=== PATIENT | female | born 1950 | race Caucasian/White ===

== ENCOUNTER 2017-03-02 14:47 | Inpatient (IN) | payer MEDICARE ==
[2017-03-02 15:59] VITALS: BP 139/52
[2017-03-02] MEDS ORDERED: AMANTADINE100 M1 PO (16:05)
[2017-03-02] MEDS ORDERED: NORVASC10 MG PO (16:06)
[2017-03-02] MEDS ORDERED: COLACE100 MG PO (16:06)
[2017-03-02] MEDS ORDERED: BAYER CHEWABLE81 MG PO (16:06)
[2017-03-02] MEDS ORDERED: FERROUS SULFAT325 MG PO (16:07)
[2017-03-02] MEDS ORDERED: LIPITOR20 MG PO (16:07)
[2017-03-02] MEDS ORDERED: MELATONIN 3 MG1 TAB PO (16:08)
[2017-03-02] MEDS ORDERED: GLUCOPHAGE500 MG PO (16:08)
[2017-03-02] MEDS ORDERED: SINGULAIR10 MG PO (16:09)
[2017-03-02] MEDS ORDERED: MILK OF MAGNESI30 ML PO (16:09)
[2017-03-02] MEDS ORDERED: DIOVAN160 MG PO (16:10)
[2017-03-02] MEDS ORDERED: VITAMIN D5000 UNIT PO (16:10)
[2017-03-02] MEDS ORDERED: NOVOLOG100 U/M1 SC (16:11)
[2017-03-02] MEDS ORDERED: RISPERDAL2 MG PO (16:12)
[2017-03-02] MEDS ORDERED: LANTUS INSULIN10 ML SC (16:14)
--- NOTE | 2017-03-02 16:34 | NUR ---
SPOKE WITH PT'S SISTER AND GOT VERBAL CONSENT FOR ADMIT. PT IS ALSO IN AGREEMENT FOR ADMISSION. CODE STATUS ADDRESSED AND PT IS A DNR.
--- NOTE | 2017-03-02 17:12 | NUR ---
Patient came from [facility] via carrier by wheel chair. She has a history of Schizophrenia. Patient is oriented to self only, but realizes she is in a hospital. She was admitted to Dr. Cárdenas because she has been aggressive and resistant with staff. She can follow commands. Patient has a flat affect. Patient is a DNR. Her sister, Chloe Mccain is her POA, who has given verbal consent for treatment. Patient has been oriented to her room, and unit. Patient has been calm and cooperative.
[2017-03-02 17:36] LABS: BASOPHILS 0.4 % (0-2); EOSINOPHILS 0.9 % (0-7); HEMATOCRIT 33.2 % (36.0-48.0); IMMATURE GRANULOCYTES 0.1 % (0-5); LYMPHOCYTES 23.6 % (15-50); MCH 22.5 pg (26.0-34.0); MCHC 30.1 g/dL (31.0-37.0); MCV 74.8 fL (80.0-100.0); MEAN PLATELET VOLUME 9.6 fL (7.4-10.4); MONOCYTES 6.8 % (2-11); NEUTROPHILS 68.2 % (40-80); PLATELET COUNT 265 10x3/uL (130-400); RBC 4.44 10x6/uL (4.00-5.40); RDW 19.7 % (11.5-14.5); WBC 8.2 10x3/uL (4.8-10.8)
[2017-03-02 18:07] LABS: ALBUMIN 3.3 g/dL (3.4-5.0); ANION GAP 15.6 mmol/L (8-16); BILIRUBIN - TOTAL 0.13 mg/dL (0.2-1.3); CALCIUM 9.9 mg/dL (8.5-10.1); CARBON DIOXIDE 26.4 mmol/L (21.0-32.0); CHOL - HDL RATIO 1.9 ratio (2.3-4.1); LDL-HDL RATIO 0.7 ratio (1.5-3.5); PROTEIN - SERUM 6.8 g/dL (6.4-8.2); THYROID STIMULATING HORMONE 3.18 uIU/mL (0.36-3.74)
[2017-03-02 19:01] LABS: HEMOGLOBIN A1C 7.9 % (4.8-6.0)
--- NOTE | 2017-03-02 20:12 | NUR ---
RECEIVED IN HALLWAY. SITTING QUIETLY IN WHEELCHAIR. NOT SOCIALIZING. CALM AND COOPERATIVE WITH CARE AND ASSESSMENTS. NOT YELLING OUT. NO SIGNS OF AGGRESSION THIS EVENING. REQUEST TO GO TO BED AND WAS ASSISTED TO BED. RESTING EYES CLOSED AT THIS TIME. CONTINUE PLAN OF CARE
[2017-03-02 23:31] VITALS: BP 174/87
[2017-03-03 10:14] VITALS: BP 129/62
--- NOTE | 2017-03-03 12:29 | NUR ---
Patient in dayroom, cries very obviously when she wants something or is uncomfortable. Most of the time, she will sit patiently, she is an independent eater, but doesn't propel wheelchair. Encouraged the patient to express her needs, which she has by asking for soda or saying when she is cold. She is calm and compliant with medication. No aggression noted. Patient does talk to herself. Continue to monitor
[2017-03-03 14:03] VITALS: Ht 167.6 cm
[2017-03-03 19:29] VITALS: BP 140/56
--- NOTE | 2017-03-03 21:26 | NUR ---
RECEIVED IN BEDROOM. LAYING IN BED WITH EYES OPEN. CALM AND COOPERATIVE WITH CARE AND ASSESSMENT. NO SIGNS OF AGGRESSION. NOT RESISTANT TO CARE. REDIRECT AND REORIENT NEEDED. ENCOURAGE TO EXPRESS NEEDS. RESTING IN BED WITH EYES CLOSED AT THIS TIME. CONTINUE PLAN OF CARE
[2017-03-04 06:16] LABS: RAPID PLASMA REAGIN Non Reactive (Non Reactive)
[2017-03-04 08:22] LABS: FOLATE (FOLIC ACID) - SERUM 11.9 ng/mL (>3.0)
[2017-03-04 08:30] VITALS: BP 166/83
--- NOTE | 2017-03-04 09:47 | PSY ---
PATIENT NAME:ROBB BROWN MEDICAL RECORD: [id number] : 50 LOCATION:[facility] ADMISSION DATE: 03/02/17 ACCOUNT: [id number] PSYCHIATRIC EVALUATION DATE OF EVALUATION: 03/03/17 Initial Psychiatric Workup IDENTIFYING DATA: This is the first long term admission and one of numerous lifetime psychiatric contacts for this 66-year-old single white female. HISTORY OF PRESENT ILLNESS: This patient has a chronic history of schizophrenia. She has had several previous psychiatric hospitalizations including at [facility] in the past. The patient is currently a resident of [facility]. She has been recently exhibiting uncooperative behavior, aggressiveness and worsened delusional ideation. The patient has stated that she thinks her sister is trying to get . She has been exhibiting somatic delusions. She has been aggressive with staff and has exhibited loosening of associations because of worsening mental status. The patient is admitted. PAST MEDICAL HISTORY: Significant for type 2 diabetes, hypertension, anemia, hyperlipidemia and vitamin D deficiency. MEDICATION: At the time of admission included Symmetrel, Norvasc, aspirin, Colace, Feosol, Lipitor, Glucophage, Milk of Magnesia, Singulair, Diovan, vitamin D3, NovoLog insulin and Lantus insulin. FAMILY HISTORY: Noncontributory. SOCIAL HISTORY: The patient does not have substance abuse issues. She is single. She does have a sister, who apparently is involved in her care. ALLERGIES: LISTED CODEINE. MENTAL STATUS: On exam, the patient is seated in a wheelchair. She seems slightly anxious. Speech is monotonous and quality. Flow of thought shows ted loosening of associations. Content of thought is positive for delusional ideation of both the paranoid and somatic nature. The patient is oriented to person, place and year. She does show concentration and short-term memory deficits. General fund of information is very limited. DIAGNOSTIC IMPRESSION: AXIS I: Schizophrenia, paranoid type -- chronic. AXIS II: No diagnosis. AXIS III: Hypertension, anemia, type 2 diabetes, hyperlipidemia, vitamin D deficiency. AXIS IV: Severe. AXIS V: 36. PLAN: 1. The patient is admitted for medication revision as indicated. 2. Diet and activities as tolerated. 3. Daily supportive therapy. TRANSINT:[id number] Voice Confirmation ID: [id number] DOCUMENT ID: [id number] SWETHA BRONSON III, MD at 0947 CC: [id number] DICTATION DATE: 03/03/17 1201 RADIOLOGY SERVICES MANAGER: 03/03/17 2104 ADM IN [place] [id number] [place] [id number]
--- NOTE | 2017-03-04 10:00 | NUR ---
B) Rec'd pt in dining room, alert, pleasant mood, feeds self, no aggression noted. I) Meds admin per orders, group activity provided. R) Annie meds well with no s/s adverse reaction noted, participated in activity when cued. P) Cont plan of care including meds and group activity.
[2017-03-04 10:21] LABS: VITAMIN D 25 HYDROXY 49.3 ng/mL (30.0-100.0)
[2017-03-04 15:01] LABS: COLOR YELLOW (YELLOW)
[2017-03-04 15:02] LABS: APPEARANCE CLEAR (CLEAR)
[2017-03-04 15:03] LABS: BILIRUBIN NEGATIVE (NEGATIVE); GLUCOSE 1000 mg/dL (NEGATIVE); KETONE NEGATIVE (NEGATIVE); LEUKOCYTE ESTERASE NEGATIVE (NEGATIVE); NITRITE NEGATIVE (NEGATIVE); PROTEIN NEGATIVE (NEGATIVE); UROBILINOGEN NORMAL (NORMAL)
[2017-03-04 20:16] VITALS: BP 126/54
--- NOTE | 2017-03-05 00:50 | NUR ---
B) Recieved sitting in a wheelchair in the day room alert and oriented to self, calm and cooperative, tearful at times, social with other patients, I) Administered perscribed medication, monitored for safety, redirected as needed, R) Medication compliant, resting now quietly in bed. P) Continue plan of care.
--- NOTE | 2017-03-05 10:35 | PN ---
PATIENT:ROBB BROWN MEDICAL RECORD: [id number] LOCATION:CATHIE Mcneill ADMISSION DATE: 03/02/17 PROGRESS NOTE DATE OF SERVICE: 03/04/2017 SUBJECTIVE: The patient states that the medicine makes her fall. OBJECTIVE: The patient has been overall more cooperative and pleasant. She does ambulate on her own from time to time. On interview, the patient's mood is euthymic. Affect is very constricted. Speech is monotonous in quality and tone. Flow of thought is very concrete. Content of thought is still positive for paranoid and delusional ideation. Sensorium is unchanged. ASSESSMENT: No change in diagnosis. PLAN: 1. Maintain present medications. 2. Continue supportive therapy. TRANSINT:[id number] Voice Confirmation ID: [id number] DOCUMENT ID: [id number] SWETHA BRONSON III, MD at 1035 CC: [id number] DICTATION DATE: 03/04/17 1050 MEDICAL DEVICE SALES: 03/04/172045 ADM IN [place] [id number] [place] [id number]
[2017-03-05 11:00] VITALS: BP 128/46
--- NOTE | 2017-03-05 20:20 | NUR ---
RECEIVED IN DAYROOM SITTING IN CHAIR. ALERT AND PLEASANT MOOD. CALM AND COOPERATIVE WITH CARE AND ASSESSMEMNT. MEDICATION COMPLIANT. NO SIGNS OF AGGRESSION NOTED. REDIRECT AND REORIENT NEEDED. CONTINUE PLAN OF CARE.
[2017-03-05 21:12] VITALS: BP 147/90
[2017-03-06 09:35] VITALS: BP 129/50
--- NOTE | 2017-03-06 15:14 | NUR ---
B) PATIENT IS AWAKE AND SHE IS COMPLAINING ABOUT MULTIPLE DIFFERENT THINGS. SHE DID STAND TODAY WITH STAFF TO TRANSFER FROM W/C TO RECLINER. PATIENT DID PARTICIPATE MINIMALLY IN GROUP TODAY, SHE DID, HOWEVER INTERRUPT MANY TIMES AMD REQUIRED REDIRECTION WITH BEHVIOR. I) PROVIDE PRESCRIBED MEDS. R) PATIENT IS COMPLIANT WITH MEDS, NEEDS REDIRECTION FOR APPROPRIATE BEHAVIORS. P) CONTINUE PLAN OF CARE.
[2017-03-06 19:30] VITALS: BP 103/86
--- NOTE | 2017-03-06 20:10 | NUR ---
RECEIVED IN DAYROOM, SITTING IN W/C QUIETLY. CALM AND COOPERATIVE WITH ASSESSMEMNT AND CARE. VSS. NO AGGRESSION NOTED MEDICATION COMPLIANT. REINFORCE FALLS SAFETY. REDIRECT AND REORIENT NEEDED. CONTINUE POC.
--- NOTE | 2017-03-07 09:00 | NUR ---
B) PATIENT IS AWAKE AND ALERT, SHE IS HALLUCINATING, SHE ASKED "WHY ARE YOU HAVING SEX" REDIRECTED. THEN SHE SAYS "FIX MY LEGS" PATIENT HAS HER FEET ELEVATED BECAUSE THEY ARE SWOLLEN AND SHEIS NOT HAPPY. PATIENT THEN SAYS "FIX MY PANTS, THEY ARE TOO TIGHT" PATIENT IS COMPLAINING AND WHINING. I) REDIRECT TO REALITY NEEDED. R) PATIENT IS COMPLIANT WITH MEDS. P) CONTINUE PLAN OF CARE.
[2017-03-07 09:02] VITALS: BP 136/56
[2017-03-07 19:30] VITALS: BP 132/68
--- NOTE | 2017-03-08 03:03 | NUR ---
B) Recieved patient in the day room, alert and oriented to self, needy and attention seeking at times, cooperative with care and assessment, I) Administered perscribed medications, monitored for falls and safety, assisted with transfers, R) Medication compliant, somatic complaints, P) Continue plan of care, continue to monitor.
[2017-03-08 08:57] VITALS: BP 143/68
--- NOTE | 2017-03-08 11:43 | NUR ---
Patient crying, unable to move left arm. Staff will move arm up, than she wants it down. Arm is hot to touch. Pulse rate 105, temp 98.4. Patient is sweating complaining of pain. Doctor called and patient given does of klonopin 2 mg and Perhenazine 2mg. Patient now is resting comfortably. Continue to monitor
--- NOTE | 2017-03-08 16:22 | NUR ---
Patient had her sister visit. She was talking, not hallucinating. Patient still has complaints of pain with her arm and her hip. Patient repositioned and put on a geomat. She is now resting in dayroom with her eyes closed. Continue to monitor.
[2017-03-08 19:30] VITALS: BP 138/72
--- NOTE | 2017-03-08 22:23 | NUR ---
B) Recieved patient in the day room alert and oriented to self, no hallucinations noted, calm and cooperative with care and assessment,I) Administered perscribed medications, monitored for falls and safety, R) Medication compliant , restin quietly now, P) Continue plan of care.
[2017-03-09 07:00] VITALS: BP 153/54
--- NOTE | 2017-03-09 09:54 | PN ---
PATIENT:ROBB BROWN MEDICAL RECORD: [id number] LOCATION:CATHIE NeffEren ADMISSION DATE: 03/02/17 PROGRESS NOTE DATE OF SERVICE: 03/06/2017 SUBJECTIVE: The patient's case was discussed with staff. She has no new complaint. OBJECTIVE: The patient is in good behavioral control with limited insight about her condition. She tolerates her medicines well. ASSESSMENT: No change in diagnoses. PLAN: The patient is still paranoid and delusional, but she has not been aggressive. She is taking a reasonable starting dose of an antipsychotic medication and based upon the improvement she has had already, I plan to just leave the dose as it is for today. TRANSINT:[id number] Voice Confirmation ID: [id number] DOCUMENT ID: [id number] MARLA JIMENES MD at 0954 CC: [id number] DICTATION DATE: 03/06/17 1253 SERVICE DESK SPECIALIST: 03/07/17 0029 ADM IN [facility] [address] [place] [id number]
--- NOTE | 2017-03-09 09:57 | PN ---
PATIENT:ROBB BROWN MEDICAL RECORD: [id number] LOCATION:CATHIE AishwaryaEren ADMISSION DATE: 03/02/17 PROGRESS NOTE DATE OF SERVICE: 03/05/2017 SUBJECTIVE: No new complaint noted. OBJECTIVE: Staff notes the patient tends to be very manipulative. For example, she will sometimes act as if she cannot bear weight, including sometimes leaning with her full body weight on to a staff member, though at the time, she ambulates quite well. She does require redirection from time to time. On exam, mood is euthymic. Affect is constricted and shallow. Speech is monotonous. Content of thought is positive for nonspecific paranoid ideation. Sensorium shows no change. ASSESSMENT: No change in diagnosis. PLAN: 1. Continue present medications. 2. Continue supportive therapy. TRANSINT:[id number] Voice Confirmation ID: [id number] DOCUMENT ID: [id number] SWETHA BRONSON III, MD at 0957 CC: [id number] DICTATION DATE: 03/05/17 1212 LOCKSTITCH FRONT EDGE TAPE SEWER: 03/06/17 0039 ADM IN [facility] [address] [place] [address]
--- NOTE | 2017-03-09 13:46 | NUR ---
Patient in dayroom in recliner, resting peacefully. Oriented to self only. Patient reoriented. Not aggressive, compliant with medication. Catron alarm activated. Continue to monitor, continue plan of care
[2017-03-09 19:42] VITALS: BP 165/55
--- NOTE | 2017-03-09 19:52 | NUR ---
RECEIVED IN HALLWAY. YELLING OUT AT TIMES. NO SIGNS OF PARANOIA. ATTENTIONS SEEKING. CALM AND COOPERATIVE WITH CARE AND ASSESSMENTS. NO SIGNS OF RESISTANCE TO CARE. NO SIGNS OF AGGRESSION.. REDIRECT AND REORIENT NEEDED. CONTINUES TO SIT OUTSIDE OF NURSES STATION. CONTINUE PLAN OF CARE
[2017-03-10 07:00] VITALS: BP 153/62
--- NOTE | 2017-03-10 14:21 | PN ---
PATIENT:ROBB BROWN MEDICAL RECORD: [id number] LOCATION:CATHIE Neff112 ADMISSION DATE: 03/02/17 PROGRESS NOTE DATE OF SERVICE: 03/09/2017 SUBJECTIVE: The patient's case was discussed with staff. She has no new complaint. OBJECTIVE: The patient is delusional and somewhat somatic. She has not been openly aggressive. ASSESSMENT: No change in diagnoses. PLAN: The patient will be maintained on Trilafon for its antipsychotic effect. I do plan to increase the dose in the next few days as it is tolerated. TRANSINT:[id number] Voice Confirmation ID: [id number] DOCUMENT ID: [id number] MARLA JIMENES MD at 1421 CC: [id number] DICTATION DATE: 03/09/17 1011 WEB ANALYST: 03/09/17 1125 ADM IN [place] [address] [place] [address]
--- NOTE | 2017-03-10 14:24 | NUR ---
Nutrition follow-up: Diet: REgular mechanical soft with thin liquids PO intake 100% of meals Labs reviewed +BM RDN following.
--- NOTE | 2017-03-10 16:57 | NUR ---
Patient in dayroom, on recliner. She has been encouraged to assist in self hygiene and transfers. Patient has been cooperative with medication. She has a flat affect but no hallucinations noted. Patient does have loose associations at this time. She has a tamanna alarm activated. Continue to monitor for safety. Continue plan of care.
--- NOTE | 2017-03-10 19:19 | NUR ---
RECEIVED IN DAYROOM. SITTING IN CHAIR. YELLING OUT AT TIMES. CALM AND COOPERATIVE WITH CARE AND ASSESSMENTS. REDIRECT AND REORIENT NEEDED. REMAINS IN CHAIR RESTING EYES OPEN. CONTINUE PLAN OF CARE
[2017-03-10 19:42] VITALS: BP 149/56
[2017-03-11 08:00] VITALS: BP 165/44
--- NOTE | 2017-03-11 09:50 | NUR ---
SITTING IN HANG CHAIR, QUIET AND COOPERATIVE WITH CARE. NO AGGRESSION. FOLLOWS DIRECTIONS AND IS CALM WITH CARE. NO PARANOIA. COMPLIANT WITH MEDICATIONS. SAFETY MAINTAINED. CONTINUE WITH PLAN OF CARE. SEE SHIFT ASSESSMENT.
--- NOTE | 2017-03-11 10:20 | PN ---
PATIENT:ROBB BROWN MEDICAL RECORD: [id number] LOCATION:CATHIE NeffEren ADMISSION DATE: 03/02/17 PROGRESS NOTE DATE OF SERVICE: 03/10/2017 SUBJECTIVE: No new complaint. OBJECTIVE: The patient continues to show delusional ideation. Over the weekend, she had been changed from Zyprexa to Trilafon due to lethargy. The patient is more alert now. No aggressiveness noted. On exam, mood is somewhat irritable. Affect is childlike. Speech is repetitive. Content of thought is focused on somatic concerns. Sensorium shows no change. ASSESSMENT: No change in diagnosis. PLAN: 1. Maintain current medications. 2. Continue supportive therapy. TRANSINT:[id number] Voice Confirmation ID: [id number] DOCUMENT ID: [id number] SWETHA BRONSON III, MD at 1020 CC: [id number] DICTATION DATE: 03/10/17 1132 GREENSKEEPER HEAD: 03/10/17 1540 ADM IN [place] [address] [place] [address]
[2017-03-11] MEDS ORDERED: PERPHENAZINE2 MG PO (10:47)
[2017-03-11] MEDS ORDERED: KLONOPIN1 MG PO (10:47)
[2017-03-11] MEDS ORDERED: TRAZODONE HCL50 MG PO (10:48)
[2017-03-11] MEDS ORDERED: GLUCOPHAGE500 MG PO (10:48)
[2017-03-11] MEDS ORDERED: VITAMIN B-121000 MCG PO (10:49)
[2017-03-11] MEDS ORDERED: INVOKANA100 MG PO (10:49)
[2017-03-11 19:50] VITALS: BP 131/56
--- NOTE | 2017-03-12 00:47 | NUR ---
B) Recieved sitting in the day room alert and oriented to self calm and cooperstive with care and assessment, I) Administered perscribed medications, monitored for safety, R) Medication compliant, resting quietly now in bed, P) Continue plan of care.
[2017-03-12 08:00] VITALS: BP 98/67
--- NOTE | 2017-03-12 10:26 | PN ---
PATIENT:ROBB BROWN MEDICAL RECORD: [id number] LOCATION:CATHIE Mcneill ADMISSION DATE: 03/02/17 PROGRESS NOTE DATE OF SERVICE: 03/11/2017 SUBJECTIVE: No coherent complaint. OBJECTIVE: The patient continues to exhibit peculiar affect. She engages in attention seeking behavior consistent with her personality disorder. At times, she is cooperative with staff and other times she demands to be lifted and offers no assistance whatsoever. This appears to be 100% voluntary. The patient is perfectly capable of ambulating on her own. She has not exhibited any particular agitation or combativeness and appears to have achieved maximum hospital benefit. On exam, the patient voluntarily keeps her eyes closed. Mood is superficially anxious. Affect is very constricted and childlike. Speech is repetitive. Thought content exhibits somatic delusions. Sensorium shows no change. ASSESSMENT: No change in diagnosis. PLAN: The patient's medications have been adjusted to the maximum degree possible. She appears to have achieved maximum benefit from hospitalization. She will be discharge tomorrow. TRANSINT:[id number] Voice Confirmation ID: [id number] DOCUMENT ID: [id number] SWETHA BRONSON III, MD at 1026 CC: [id number] DICTATION DATE: 03/11/17 1042 GLOBAL EXPANSION SALES DIRECTOR: 03/11/17 1413 ADM IN [place] [address] [place] [address]
--- NOTE | 2017-03-12 11:00 | NUR ---
B) PATIENT IS AWAKE AND ALERT, SHE IS NEGATIVE AND WILL NOT DO THINGS FOR HERSELF. SHE IS D/CING TODAY. SHE IS ORIENTED TO SELF AND PLACE. SHE IS COMPLIANT WITH MEDS AND HAS SLEPT MOST OF THE DAY. I) PROVIDE PRESCRIBED MEDS. R) PATIENT IS COMPLIANT WITH MEDS. P) CONTINUE WITH D/C PLAN.
--- NOTE | 2017-03-12 12:07 | NUR ---
FAXED PAPERWORK TO [facility], DISCHARGE ORDER, MEDICATION RECONCILLIATION.
--- NOTE | 2017-03-12 12:12 | NUR ---
CALLED REPORT TO MORALES AT [facility] ON PATIENT STATUS. MORALES KNOWS PATIENT WELL. WILL SEND HARD COPY OF ORDERS WITH THE STEWARD/STEWARDESS LOUNGE.
--- NOTE | 2017-03-12 14:10 | NUR ---
PATIENT D/C'D TO [facility] WITH STAFF ASSIST TO VEHICLE. PROVIDED [facility] WITH HARD COPY. PATIENT D/C'D FROM UNIT NOW.
--- NOTE | 2017-03-13 05:29 | DS ---
PATIENT:ROBB BROWN :50 MEDICAL RECORD: [id number] DISCHARGE SUMMARY ADMISSION DATE: 03/02/17 DISCHARGE DATE: 03/12/17 DATE OF ADMISSION: 03/02/2017 DATE OF DISCHARGE: 03/12/2017 HISTORY OF PRESENT ILLNESS: First Snf admission on one of numerous psychiatric hospitalizations in her lifetime for this 66-year-old single white female. This patient has chronic history of schizophrenia. She is housed at a local senior care. She had been exhibiting uncooperative behavior, aggressiveness and delusional ideation. For further details, please see previously dictated history. COURSE IN THE HOSPITAL: The patient was seen by Dr. Warner for consultation. COMORBIDITIES: Include type 2 diabetes, hypertension, anemia, hyperlipidemia and vitamin D deficiency. Over the course of the hospitalization, the patient was initially placed on Zyprexa, but became sedated, she was changed to perphenazine 2 mg twice a day. She was maintained on Klonopin 2 mg twice a day for anxiety and also she was given Trazodone 75 mg at bedtime for insomnia. The patient initially was poorly cooperative. This did not improve a great deal during the hospitalization. She had to be encouraged to assist caregivers in terms of transfers. She has the ability to bear her own weight, but at times will deliberately become flaccid. The patient exhibited primitive attention seeking behaviors and behaved in a childlike fashion much of the time. Again, firm redirection was often required. Following the adjustment in medications, it was felt that the patient had achieved maximum benefit from hospitalization. She was not showing combativeness or severe agitation by the time of discharge. FINAL DIAGNOSES: AXIS I: Schizophrenia, paranoid type, chronic. AXIS II: No diagnosis. AXIS III: Hypertension, anemia, type 2 diabetes, hyperlipidemia and vitamin D deficiency. AXIS IV: Moderate. AXIS V: 38. PLAN: 1. We will continue all current medications. 2. Diet and activities as tolerated. 3. Follow up through a physician at the senior care. TRANSINT:[id number] Voice Confirmation ID: [id number] DOCUMENT ID: [id number] DISCHARGE SUMMARY REPORT [id number] ROBB BROWN AUDIE PASTOR, SWETHA Rendon MD at 0529 CC: [id number] DICTATION DATE: 03/12/17 1148 RECREATIONAL THERAPIST: 03/13/17 0411 DIS IN 03/12/17 [facility] [address] [place] [address]
== END 2017-03-12 14:20 | DRG 885 ==
LOC: D.PSYCH 14:47
PROVIDERS: ADMIT Psychiatry & Neurology Psychiatry
DX: F20.0 Paranoid schizophrenia (principal); E11.9 Type 2 diabetes mellitus without complications; Z79.4 Long term (current) use of insulin; I10 Essential (primary) hypertension; D64.9 Anemia, unspecified; E78.5 Hyperlipidemia, unspecified; E53.8 Deficiency of other specified B group vitamins; E55.9 Vitamin D deficiency, unspecified; G47.00 Insomnia, unspecified; K59.00 Constipation, unspecified; F41.9 Anxiety disorder, unspecified

== ENCOUNTER 2017-03-20 19:42 | Inpatient (IN) | payer MEDICARE ==
[~2017-03-20] VITALS: Ht 167.6 cm
[~2017-03-20 19:42] MED LIST: AMANTADINE100 M1 PO; BAYER CHEWABLE81 MG PO; COLACE100 MG PO; DIOVAN HCT 160/1 TA1 PO; FERROUS SULFAT325 MG PO; GLUCOPHAGE500 MG PO; INVOKANA100 MG PO; KLONOPIN1 MG PO; LANTUS INSULIN10 ML SC; LIPITOR20 MG PO; MELATONIN 3 MG1 TAB PO; MILK OF MAGNESI30 ML PO; NORVASC10 MG PO; NOVOLOG100 U/M1 SC; PERPHENAZINE2 MG PO; RISPERDAL2 MG PO; SINGULAIR10 MG PO; TRAZODONE HCL50 MG PO; VITAMIN B-121000 MCG PO; VITAMIN D5000 UNIT PO
[2017-03-20 20:13] LABS: BASOPHILS 0.2 % (0-2); EOSINOPHILS 0.9 % (0-7); HEMATOCRIT 37.5 % (36.0-48.0); HEMOGLOBIN 11.4 g/dL (12-16); IMMATURE GRANULOCYTES 0.2 % (0-5); LYMPHOCYTES 15.4 % (15-50); MCH 23.5 pg (26.0-34.0); MCHC 30.4 g/dL (31.0-37.0); MCV 77.2 fL (80.0-100.0); MEAN PLATELET VOLUME 9.4 fL (7.4-10.4); MONOCYTES 6.7 % (2-11); NEUTROPHILS 76.6 % (40-80); RBC 4.86 10x6/uL (4.00-5.40); RDW 19.6 % (11.5-14.5); WBC 9.7 10x3/uL (4.8-10.8)
[2017-03-20 20:36] LABS: PLATELET COUNT 341 10x3/uL (130-400)
[2017-03-20 20:42] LABS: ALBUMIN 3.3 g/dL (3.4-5.0); ANION GAP 19.9 mmol/L (8-16); BILIRUBIN - TOTAL 0.21 mg/dL (0.2-1.3); CALCIUM 9.7 mg/dL (8.5-10.1); CARBON DIOXIDE 20.3 mmol/L (21.0-32.0); POTASSIUM - SERUM 4.2 mmol/L (3.5-5.1)
[2017-03-20 20:54] LABS: APPEARANCE CLEAR (CLEAR); BILIRUBIN NEGATIVE (NEGATIVE); COLOR YELLOW (YELLOW); GLUCOSE 1000 mg/dL (NEGATIVE); KETONE NEGATIVE (NEGATIVE); LEUKOCYTE ESTERASE NEGATIVE (NEGATIVE); NITRITE NEGATIVE (NEGATIVE); PROTEIN NEGATIVE (NEGATIVE); SPECIFIC GRAVITY 1.025 (1.005-1.020); UROBILINOGEN NORMAL (NORMAL)
[2017-03-20 20:56] LABS: UDS - AMPHET NEGATIVE QUAL (NEGATIVE); UDS - BARB NEGATIVE QUAL (NEGATIVE); UDS - BENZO NEGATIVE QUAL (NEGATIVE); UDS - COCAINE NEGATIVE QUAL (NEGATIVE); UDS - METH NEGATIVE QUAL (NEGATIVE); UDS - OPIATE NEGATIVE QUAL (NEGATIVE); UDS - PCP NEGATIVE QUAL (NEGATIVE); UDS - THC NEGATIVE QUAL (NEGATIVE)
[2017-03-20 21:25] LABS: CREATINE KINASE 183 UL (21-215); TROPONIN-I < 0.017 ng/mL (0.000-0.060)
[2017-03-21] VITALS (7 sets, daily range): BP systolic 132–148; BP diastolic 59–84; Ht 167.6 cm
--- NOTE | 2017-03-21 06:23 | NUR ---
SPOKE WITH CHELLE AT [facility]. SHE STATED THAT SHE WILL HAVE THE PATIENT'S NURSE FAX A COPY OF THE MAR.
--- NOTE | 2017-03-21 08:00 | NUR ---
PT CONFUSED RESP EVEN AND NONLABORED IV TO RIGHT FOREARM PATENT AND INTACT SRX2 BED AT LOWEST SETTING CALL LIGHT WITHIN REACH WILL CONTINUE TO MONITOR
[2017-03-21] MEDS ORDERED: AMANTADINE100 M1 PO (12:08)
[2017-03-21] MEDS ORDERED: NOVOLOG100 U/M1 SC (12:12)
[2017-03-21] MEDS ORDERED: GLUCAGEN1 MG/VIAL IM (12:14)
[2017-03-21] MEDS ORDERED: GLUCAGEN1 MG/VIAL SC (12:14)
[2017-03-21] MEDS ORDERED: INSTA-GLUCOSE31 G1 PO (12:14)
[2017-03-21] MEDS ORDERED: RISPERDAL3 MG PO (12:15)
[2017-03-21] MEDS ORDERED: BACTROBAN NASAL1 GM NASAL (12:16)
[2017-03-21] MEDS ORDERED: ACETAMINOPHEN325 MG PO (12:16)
[2017-03-21] MEDS ORDERED: MELATONIN 3 MG1 TAB PO (12:17)
[2017-03-21] MEDS ORDERED: GLUCOPHAGE500 MG PO (12:19)
[2017-03-21] MEDS ORDERED: PERPHENAZINE2 MG PO (12:30)
[2017-03-22] VITALS: BP 152/59
--- NOTE | 2017-03-22 00:04 | NUR ---
REC'D PATIENT SITTING UP IN BED, HAD TO SUCTION THROAT. DENIED PAIN AT THIS TIME. STATE SHE WAS HOT. INSTRUCTED TO CALL IF NEEDED ANYTHING. WILL CONT TO MONITOR, ADMIN PM MEDS PRESCRIBED, BED LOW, LOCKED, CALL LIGHT IN REACH
[2017-03-22 04:00] VITALS: BP 153/66
[2017-03-22 05:07] LABS: BASOPHILS 0.5 % (0-2); EOSINOPHILS 0.8 % (0-7); HEMATOCRIT 34.4 % (36.0-48.0); HEMOGLOBIN 10.3 g/dL (12-16); IMMATURE GRANULOCYTES 0.3 % (0-5); LYMPHOCYTES 18.7 % (15-50); MCH 23.3 pg (26.0-34.0); MCHC 29.9 g/dL (31.0-37.0); MCV 77.7 fL (80.0-100.0); MEAN PLATELET VOLUME 9.5 fL (7.4-10.4); NEUTROPHILS 71.7 % (40-80); PLATELET COUNT 312 10x3/uL (130-400); RBC 4.43 10x6/uL (4.00-5.40); RDW 19.4 % (11.5-14.5); WBC 7.4 10x3/uL (4.8-10.8)
[2017-03-22 05:28] LABS: CALC OSMOLALITY 296 mosm/kg (275-300); CALCIUM 9.1 mg/dL (8.5-10.1); CARBON DIOXIDE 22.5 mmol/L (21.0-32.0); CHLORIDE - SERUM 113 mmol/L (98-107); CHOLESTEROL, TOTAL 95 mg/dL (0-200); CREATININE - SERUM 0.8 mg/dL (0.6-1.3); GLUCOSE 125 mg/dL (74-106); HDL CHOLESTEROL 48 mg/dL (32-96); LDL CHOLESTEROL 34 mg/dL (0-100); LDL-HDL RATIO 0.7 ratio (1.5-3.5); POTASSIUM - SERUM 3.5 mmol/L (3.5-5.1); SODIUM 147 mmol/L (136-145); TRIGLYCERIDE 65 mg/dL (30-200); UREA NITROGEN 24 mg/dL (7-18); eGFR NON AFRICAN AMERICAN 76 mL/min (90-120)
[2017-03-22 05:29] LABS: HEMOGLOBIN A1C 7.5 % (4.8-6.0)
[2017-03-22 08:31] VITALS: BP 142/64
--- NOTE | 2017-03-22 09:15 | NUR ---
PATIENT ALERT IN HIGH GALLARDO POSITION. NO SIGNS OF DISTRESS NOTED. PRIMARY NURSE ROSE DIAL AT BEDSIDE. SIDE RAILS UP X2. BED IN LOW POSITION. CALL LIGHT IN REACH.
[2017-03-22 12:14] VITALS: BP 151/64
[2017-03-22 16:28] VITALS: BP 145/70
[2017-03-22 17:41] LABS: APPEARANCE CLOUDY (CLEAR); BILIRUBIN NEGATIVE (NEGATIVE); COLOR YELLOW (YELLOW); GLUCOSE 1000 mg/dL (NEGATIVE); KETONE MODERATE mg/dL (NEGATIVE); LEUKOCYTE ESTERASE 2+ (NEGATIVE); NITRITE NEGATIVE (NEGATIVE); PROTEIN TRACE mg/dL (NEGATIVE); UROBILINOGEN NORMAL (NORMAL)
[2017-03-22 17:44] LABS: BACTERIA MODERATE /hpf (NONE SEEN); EPITHELIAL CELLS 0-5 /hpf (0-5); RED CELLS - URINE 0-5 /hpf (0-5); URIC ACID CRYSTALS OCC /hpf (NONE SEEN); YEAST >1+ /hpf (NONE SEEN)
[2017-03-22 20:00] VITALS: BP 144/67
--- NOTE | 2017-03-22 20:00 | NUR ---
REC'D IN BED ALERT TO NAME ONLY. RESP EVEN AND UNLABORED WITH NO DISTRESS NOTED. F/C INTACT DRAINING TO GRAVITY. NO PAIN OR DISCOMFORT NOTED SUCH MOANING OR FAICAL GRIMACES. ASSESSMENT COMPLETED. C/L IN REACH AT BEDSIDE.
--- NOTE | 2017-03-23 02:00 | NUR ---
PT IN BED WITH NO DISTRESS. RESPIRATIONS EVEN AND UNLABORED. SIDE RAILS X 2. BED LOW. CALL LIGHT IN REACH.
[2017-03-23 04:00] VITALS: BP 182/72
[2017-03-23 06:22] LABS: BASOPHILS 0.1 % (0-2); EOSINOPHILS 0 % (0-7); HEMATOCRIT 33.3 % (36.0-48.0); HEMOGLOBIN 9.9 g/dL (12-16); IMMATURE GRANULOCYTES 0.2 % (0-5); LYMPHOCYTES 13.4 % (15-50); MCH 23.1 pg (26.0-34.0); MCHC 29.7 g/dL (31.0-37.0); MCV 77.8 fL (80.0-100.0); MEAN PLATELET VOLUME 9.2 fL (7.4-10.4); NEUTROPHILS 80.3 % (40-80); PLATELET COUNT 313 10x3/uL (130-400); RBC 4.28 10x6/uL (4.00-5.40); RDW 19.7 % (11.5-14.5); WBC 8.7 10x3/uL (4.8-10.8)
[2017-03-23 06:41] LABS: CALC OSMOLALITY 304 mosm/kg (275-300); CALCIUM 8.9 mg/dL (8.5-10.1); CARBON DIOXIDE 20.7 mmol/L (21.0-32.0); CREATININE - SERUM 0.8 mg/dL (0.6-1.3); GLUCOSE 85 mg/dL (74-106); POTASSIUM - SERUM 3.5 mmol/L (3.5-5.1); SODIUM 152 mmol/L (136-145); UREA NITROGEN 24 mg/dL (7-18); eGFR NON AFRICAN AMERICAN 76 mL/min (90-120)
[2017-03-23 06:42] LABS: CHLORIDE - SERUM 116 mmol/L (98-107)
[2017-03-23 08:50] VITALS: BP 172/72
--- NOTE | 2017-03-23 09:17 | NUR ---
Patient Name: ROBB BROWN Admission Status: ER Accout number: [id number] Admission Date: 03-20-2017 : 1950 Admission Diagnosis: Attending: OLESYA Current LOS: 3 Anticipated DC Date: 03-26-2017 Planned Disposition: Nursing Facility [facility] Primary Insurance: MEDICARE A & B Discharge Planning Comments: CM CALLED PATIENTS SISTER (PAULETTE URBINA) REGARDING D/C NEEDS AND PLANS. PATIENT IS FROM [facility] (RESIDENT FOR 3YEARS). PATIENT WILL RETURN THERE AT DISCHARGE PER SISTER. PATIENT HAS RECENTLY BEEN IN PRISON PER SISTER. PATIENTS PCP IS DR. CLEANING AND USES [facility] [place]. CM WILL CONTINUE TO FOLLOW PATIENT WITH D/C NEEDS AND PLANS. PCP DR. CLEANING IN HOU[facility] AT [place] (PHARMACY) PAULETTE URBINA (SISTER) [phone] Director Of Restaurants: Berta Viramontes Is the patient Alert and Oriented? Yes 0 * PCP DR. CLEANING 0 * Pharmacy IN [facility] [place] 0 * Preadmission Environment [facility] 0 * Facility Name [facility] 0 * ADLs Total Dependent 0 * Other Equipment FACILITY HAS ALL EQUIPMENT NEEDED 0 * List name and contact numbers for known caregivers / representatives who currently or will assist patient after discharge: PAULETTE URBINA 0 * Community resources currently utilized None 0 * Additional services required to return to the preadmission environment? Yes 0 * Can the patient safely return to the preadmission environment? Yes 0 * Has this patient been hospitalized within the prior 30 days at any hospital? Yes 0 Grand Total: 0
[2017-03-23 12:06] VITALS: BP 137/53
--- NOTE | 2017-03-23 13:15 | NUR ---
DR. CLEANING PAGED REGARDING PT CALLING OUT AND STATING SHE IS IN PAIN.
--- NOTE | 2017-03-23 13:18 | NUR ---
DR. CLEANING RETURNED CALL. NEW ORDERS RECEIVED.
--- NOTE | 2017-03-23 14:10 | CN ---
PATIENT NAME:ROBB BROWN MEDICAL RECORD: [id number] : 50 LOCATION:[id number] ADMIT DATE: 03/20/17 ACCOUNT: [id number] CONSULTING PHYSICIAN: MARLA JIMENES MD REFERRING PHYSICIAN: CONG CLEANING MD DATE OF CONSULTATION: 03/21/2017 Psychiatric Consultation IDENTIFYING DATA: The patient is 66 years old and she is admitted to the hospital secondary to mental status changes. CHIEF COMPLAINT: None. HISTORY OF PRESENT ILLNESS: The patient is currently lying in bed with her mouth open, staring at the ceiling, but only talking intermittently. Her sister is with her and her sister I think is a reliable historian. The sister says that Robb has had paranoid schizophrenia since the age of 16. She has been in and out of hospitals and assisted care institutions since then. Most recently, she has been in the alf for the past 4 years. The sister says that she sees no change in the patient's underlying disease process regarding her schizophrenia that is to say she is not any less or more delusional than she has been for a long time. The sister says that it is her opinion that the patient was placed on some pain medications and became bizarre. MENTAL STATUS EXAMINATION: The patient is alert and oriented to person and place, but not to time or situation. Formal mental status testing is really not possible given the patient's underlying inability to communicate with me. ASSESSMENT: Schizophrenia, paranoid type. PLAN: The patient is currently not taking a scheduled dose of an antipsychotic. I would recommend one be started. According to the patient's sister, she is taking Risperdal for 16 years and been relatively stable on it. It seems reasonable to me. I would recommend starting her at a dose of half a milligram twice daily and in a day or two going up to a milligram twice daily. The p.r.n. use of Geodon 10 mg every 4 hours for agitation would also be reasonable. In reviewing the patient's medicines, she is not on any pain medications at this point, so it is difficult to reconcile the symptoms being reported by the alf and currently here in the hospital with the information given to me by the sister. At any rate, she is clearly not directly or acutely dangerous or agitated in some serious or disruptive way and I would recommend involving her outpatient psychiatrist with her care at the alf. TRANSINT:[id number] Voice Confirmation ID: [id number] DOCUMENT ID: [id number] MARLA JIMENES MD at 1410 CC: [id number] DICTATION DATE: 03/21/17 1320 WOOD CREW SUPERVISOR: 03/21/17 2104 ADM IN [place] [id number] [place] [address]
--- NOTE | 2017-03-23 14:21 | NUR ---
NUTRITION MONITORING & EVAL CHART REVIEWED, PT SLEEPING AT THIS TIME. PUREED DIET WITH 25 TO 50% INTAKE. REQUIRES ASSIST/FEEDING. WILL CONTINUE TO PROVIDE CURRENT DIET, MONITOR PO INTAKE. RD FOLLOWING
[2017-03-23 15:57] VITALS: BP 155/75
[2017-03-23 20:03] VITALS: BP 150/74
--- NOTE | 2017-03-23 22:47 | NUR ---
REC'D PATIENT LYING IN BED. ALERT AND ORIENTED X2. DENIED PAIN AT THIS TIME. IS WANTING SOME WATER, WILL GET FOR HER. WILL CONT TO MONITOR, WILL TURN Q2. WILL ADMIN PM MEDS PRESCRIBED. INSTRUCTED TO CALL IF NEEDED ANYTHING. BED LOW, LOCKED, CALL LIGHT IN REACH, ALARM ON.
[2017-03-24] VITALS: BP 146/68
--- NOTE | 2017-03-24 02:00 | NUR ---
PT IN BED WITH NO DISTRESS. RESPIRATIONS EVEN AND UNLABORED. SIDE RAILS X 2. BED LOW. CALL LIGHT IN REACH.
--- NOTE | 2017-03-24 03:26 | NUR ---
PATIENT IS RESTING IN BED. NO DISTRESS NOTED. WILL CONT TO MONITOR. INSTRUCTED TO CALL IF NEEDED ANYTHING. BED LOW, LOCKED CALL LIGHT IN REACH.
[2017-03-24 04:00] VITALS: BP 115/758
[2017-03-24 05:22] LABS: MAGNESIUM - SERUM 1.7 mg/dL (1.8-2.4); PHOSPHOROUS 3.3 mg/dL (2.5-4.9)
[2017-03-24 08:25] VITALS: BP 182/70
[2017-03-24] MEDS ORDERED: Levaquin PREMIX IV (09:55)
[2017-03-24] MEDS ORDERED: ZOSYN 3.3753.375 G1 IV (09:56)
[2017-03-24] MEDS ORDERED: ALBUTEROL2.5 MG/3 M UPD (09:56)
[2017-03-24] MEDS ORDERED: RISPERDAL0.5 MG PO (09:57)
[2017-03-24] MEDS ORDERED: FLORAJEN3 CAPS460 MG PO (09:58)
--- NOTE | 2017-03-24 10:50 | NUR ---
CM SPOKE WITH PATIENTS SISTER (PAULETTE URBINA) REGARDING PATIENT D/C TO [facility]. SISTER AGREED TO DISCHARGE IMM IN CHART. CM CALLED [facility] FOR VISITING HOURS AND TOLD SISTER THE TIMES. SISTER STATED SHE WAS COMING TODAY TO VISIT. (CATE MINER,KATHI,SALENA 3:30-5)
--- NOTE | 2017-03-24 15:45 | NUR ---
O2 SAT 97% ON 5L NC. RESTING QUIETLY IN BED AT THIS TIME.
[2017-03-24 19:00] VITALS: BP 142/63
[2017-03-25 04:00] VITALS: BP 153/56
--- NOTE | 2017-03-25 05:38 | NUR ---
no change in assessment. cl in reach. positioned for comfort.
[2017-03-25 07:57] VITALS: BP 168/65
--- NOTE | 2017-03-25 08:00 | NUR ---
AWAKE AT THIS TIME POSITIONED ON LEFT SIDE AT THIS TIME. CALL LIGHT IN REACH, WILL CONTINUE WITH PLAN OF CARE.
--- NOTE | 2017-03-25 10:15 | NUR ---
SCHEDULED MEDICATIONS ADMINISTERED AT THIS TIME. ASSESSMENT PERFORMED PER FLOWSHEET. PT REMAINS NPO. MEPILEX DRESSING APPLIED TO BUTTOCK. PT TO D/C TO NURSING FACILITY ON HOSPICE. SISTER AWARE.
--- NOTE | 2017-03-25 10:45 | NUR ---
CM REASSESSMENT NOTE:HOSPICE EVAL SENT TO [facility]. SISTER HAD SPOKEN WITH NURSE LAST NIGHT. HOSPICE WILL BE HERE WITHIN AN HOUR FAMILY NOTIFIED (PAULETTE / SISTER).
--- NOTE | 2017-03-25 10:47 | NUR ---
OFIRMEV 1,000MG ADMINISTERED AT THIS TIME IV PER ORDER FOR TEMPERATURE OF 102.5 ORALLY.
[2017-03-25 11:51] VITALS: BP 168/63
--- NOTE | 2017-03-25 14:03 | NUR ---
TEMPERATURE 102.9 ORAL AT THIS TIME. ONE TIME DOSE OF TYLENOL 650MG SUPPOSITORY ADMINISTERED WELL PRN DILAUDID 0.5MG IV FOR PAIN. SISTER AT BEDSIDE. PT BEING ASSESSED FOR INPATIENT HOSPICE WITH [facility].
[2017-03-25 15:37] VITALS: BP 142/66
--- NOTE | 2017-03-25 18:45 | NUR ---
EM[facility] ARRIVED TO TRANSPORT PT TO [facility]. CALLED KARTHIK ALTAMIRANO AT [phone] AND TOLD HER THAT PT WAS IN ROUTE.
== END 2017-03-25 18:45 | disposition home health service (06) | DRG 177 ==
LOC: D.ER 19:42 → D.MS 22:00
PROVIDERS: Emergency Medicine; Internal Medicine Pulmonary Disease; ADMIT Family Medicine
PROC: 0T9B70Z Drainage of Bladder with Drainage Device, Via Natural or Artificial Opening (ICD-10-PCS; principal; 2017-03-20)
DX: J69.0 Pneumonitis due to inhalation of food and vomit (principal); G93.41 Metabolic encephalopathy; R53.2 Functional quadriplegia; L89.153 Pressure ulcer of sacral region, stage 3; F20.0 Paranoid schizophrenia; N39.0 Urinary tract infection, site not specified; E86.0 Dehydration; E55.9 Vitamin D deficiency, unspecified; R00.0 Tachycardia, unspecified; I10 Essential (primary) hypertension; R50.9 Fever, unspecified; E78.5 Hyperlipidemia, unspecified; G25.0 Essential tremor; E11.40 Type 2 diabetes mellitus with diabetic neuropathy, unspecified; Z79.4 Long term (current) use of insulin